=== PATIENT | male | born 1995 | race Caucasian/White ===

== ENCOUNTER 2018-07-16 12:21 | Emergency (ER) | payer SELFPAY ==
[~2018-07-16] VITALS: Ht 188 cm; Wt 79.0 kg
[2018-07-16 12:36] VITALS: BP 116/84
== END 2018-07-16 16:20 | disposition left against medical advice (07) ==
LOC: ER 12:21
DX: M79.671 Pain in right foot (principal); Z53.21 Procedure and treatment not carried out due to patient leaving prior to being seen by health care provider